=== PATIENT | female | born 1995 | race Caucasian/White ===

== ENCOUNTER 2016-09-18 21:01 | Emergency (ER) | payer OTHER ==
[~2016-09-18 21:01] MED LIST: ONDA8TAB7 PO
[2016-09-18 21:19] VITALS: BP 132/62; PULSE 116; RESP 20; O2SAT 100
--- NOTE | 2016-09-18 21:30 | ED.REPORT ---
HPI-Abd Pain F Under 40 Date of Service Sep 18, 2016 ED Provider: Ap Ross MD Patient is a 20 year old female who is currently 7 weeks presents to the ED complaining of lower back pain onset 4 days ago. Patient states that the pain is severe and came on suddenly, causing her to collapse to the ground. She did not sustain any injury or trauma prior to onset of symptoms or during her fall. Her pain is especially severe at her left lower back. The patient states that she was seen at [facility] ED for this complaint several days ago and was discharged with a small amount of hydrocodone. At this time her was confirmed. Her back pain has been persistent since that time and today she was notified by [facility] [place] that her culture was positive for a UTI. She denies numbness or weakness of her lower extremities, saddle numbness, bowel incontinence, urinary incontinence, fever, dysuria, or cough. Patient has an appointment to see an SHOW DES[employer] SUPERVISOR in 2 weeks. Nursing Notes Stated Complaint: BACK PAIN, Chief Complaint: Female Abdominal Pain Nursing Notes Reviewed: Yes Allergies: Coded Allergies: latex (Verified Allergy, Unknown, 06/06/16) Scheduled Sulfamethoxazole/Trimeth 800-160 mg (Bactrim DS) 1 Each Tablet 1 TABLET PO BID Scheduled PRN Ibuprofen (Ibuprofen) 600 Mg Tablet 600 MG PO QID PRN PRN For Pain Ondansetron ODT (Zofran ODT) 8 Mg Tablet 8 MG PO QID PRN PRN For Nausea General Time Seen by MD: 21:29 Chief Complaint Other (back pain) Hx Obtained From: Patient Arrived By: Walk-in Sudden in Onset?: Yes Onset Occurred: 4 days ago Symptom Duration: Since onset Quality: Painful Severity: Current: Moderate Severity: Maximum: Severe Recent Healthcare: Recent doctor visit Similar Sx Previous: No Past Medical History Past Medical History Past Surgical History denies Smoking History Never Smoker Social History Drug Use: THC Other Social History: Good social support, Local resident Ambulatory Status Independent Review of Systems Constitutional: Denies: Chills, Fever Respiratory: Denies: Non-productive cough Female: Reports: , Denies: Dysuria, Incontinence Musculoskeletal: Reports: Back pain Complete sys rev & neg: except as marked. Neurologic: Denies: Bladder dysfunction, Bowel dysfunction, Numbness, Weakness Physical Exam Initial Vital Signs Vital Signs (First) Date Time Temp Pulse Resp B/P Pulse Ox O2 Delivery O2 Flow Rate FiO2 09/18/16 21:19 36.8 116 20 132/62 100 Room Air Initial VS: Reviewed Head / Eyes: Atraumatic, Normocephalic, PERRL ENT: Mucous membranes moist, Conjunctiva normal, No scleral icterus Neck: Supple, Non-tender, Full range of motion Extremities: No swelling, No tenderness Skin: Warm, Dry, No cyanosis Neurologic: Alert, Oriented, Nonfocal Psychiatric: Mood/affect normal, Behavior normal, Normal thought content General/Constitutional: Awake, Alert, No acute distress Respiratory / Chest: Breath sounds NL, Breath sounds = bilat, No respiratory distress, No rales, No rhonchi, No wheezing Cardiovascular: Heart rate NL, Regular rhythm, Heart sounds NL, No murmurs Abdomen: Soft, Non-tender, No guarding, No rebound Back: No midline vertebral tend Flank / Spine / Paraspinal: Positive: Flank tender L, Lumbar paraspinal tend... (left) Interpretation & Diagnostics Lab Results Interpretation Test 09/18/16 21:55 Urine Color Yellow (YELLOW) Urine Appearance Hazy (CLEAR,HAZY) Urine pH 7.0 (5.0-8.0) Urine Specific [place] 1.015 (1.003-1.035) Urine Protein Negativemg/dL (NEG,TRACE) Urine Glucose (UA) Negativemg/dL (NEGATIVE) Urine Ketones Negativemg/dL (NEGATIVE) Urine Occult Blood Negative (NEGATIVE) Urine Nitrite Negative (NEGATIVE) Urine Bilirubin Negative (NEGATIVE) Urine Urobilinogen Normalmg/dL (NORMAL) Urine Leukocyte Esterase Trace (NEGATIVE) Urine RBC 0-2/hpf (0-2) Urine WBC 6-10/hpf (0-5) Urine Epithelial Cells Moderate/hpf (NONE-MOD) Urine Crystals None seen (NONE SEEN) Urine Bacteria Moderate/hpf (NONE-FEW) Urine Hyaline Casts None/lpf (NONE) Urine Granular Casts None seen (NONE SEEN) Urine Waxy Casts None seen (NONE SEEN) Urine Red Blood Cell Casts None seen (NONE SEEN) Urine White Blood Cell Casts None seen (NONE SEEN) Urine Mucus None seen (None Seen) Urine Trichomonas None seen (NONE SEEN) Urine Yeast None (NONE SEEN) Urinalysis Comment None Urine Culture Reflexed Indicated Re-Eval/Medical Decision Med Decision/Clinical Course Med Decision/Clinical Course: 20-year-old who is currently approximately seven weeks presents with a left low back pain and dysuria. She had a UTI documented in previous visit and was advised to begin antibiotics but has not done so. Urinalysis again confirms a UTI. She was begun with Bactrim DS. Follow-up with SHOW DESIGN SUPERVISOR plan for two weeks hence. Discharged in stable condition. Source of Hx: Old records Summary of Info: Reviewed records obtained from [facility] [place], including urine culture. Noted sensitivity to Bactrim. Re-Evaluation/Progress : Time of Eval: 22:23 Patient Status: Condition improved Re-Evaluation/Progress Note: The patient has a UTI, which will be treated with antibiotics. Patient understands and agrees with the plan to be discharged home. Discharge instructions and follow-up discussed. All questions were addressed. Return to the ED warnings given. Counseled Regarding: Diagnosis, Lab results, Need for follow-up, When/why to return to ED Discharge & Departure Primary Impression: UTI (urinary tract infection) during Trimester: first trimester Qualified Code: O23.41 - Unspecified infection of urinary tract in , first trimester Additional Impression: Back pain Back pain location: back pain in unspecified location Chronicity: acute Back pain laterality: unspecified Qualified Code: M54.9 - Dorsalgia, unspecified Disposition: Home Discharge Condition All VS Reviewed: Yes Condition: Stable Patient Instructions: Acute Low Back Pain (ED), Urinary Tract Infection in Women (ED) Additional Instructions: Your urine is definitely infected, and the germ previously recovered is sensitive to Bactrim. Begin Bactrim twice daily for ten days. Drink plenty of fluids and stay well-hydrated. Refer to additional instructions enclosed. You may use ibuprofen 600 milligrams four times daily for back pain up through the 20th week of .You may also use extra strength Tylenol. Follow-up with your doctor in the office. Keep your intake over the appointment as planned this month. Referrals: [facility] (PCP) Scribe Attestation Portions of this note were transcribed by Sharda Farooq. I, Dr. Ross personally performed the history, physical exam and medical decision-making; I reviewed and confirmed the accuracy of the information in the transcribed note. Signed by: Allan Ortiz, 09/18/2016 2224 copies to: [facility] Ap Ross MD Sep 18, 2016 21:30 Sharda Farooq Sep 18, 2016 21:37
[2016-09-18 22:13] LABS: APPEARANCE,URINE HAZY (CLEAR,HAZY); COLOR,URINE YELLOW (YELLOW)
[2016-09-18 22:14] LABS: OCCULT BLOOD,URINE NEGATIVE (NEGATIVE); UROBILINOGEN,URINE NORMAL (NORMAL)
[2016-09-18] MEDS ORDERED: Trimethoprim-Sulfa 160 mg-800 mg Tablet PO ONE (22:20)
[2016-09-18] MEDS ORDERED: SULF1TAB7 PO (22:21)
[2016-09-18] MEDS ORDERED: IBUP-1827 PO (22:22)
== END 2016-09-18 22:37 | disposition home or self-care (01) ==
LOC: SED 21:01
DX: O23.41 Unspecified infection of urinary tract in pregnancy, first trimester (principal); B96.89 Other specified bacterial agents as the cause of diseases classified elsewhere; Z3A.01 Less than 8 weeks gestation of pregnancy; Z91.040 Latex allergy status